=== PATIENT | male | born 1995 | race Caucasian/White ===

== ENCOUNTER 2017-08-06 14:26 | Emergency (ER) | payer OTHER ==
[~2017-08-06] VITALS: Ht 170.2 cm; Wt 67.7 kg
[2017-08-06] MEDS ORDERED: AZITHROMYCIN 500 MG TABLET PO ONE (18:00)
[2017-08-06] MEDS ORDERED: CEFTRIAXONE SODIUM 250 MG/VIAL IM ONE (18:00)
[2017-08-06] MEDS ORDERED: LIDOCAINE HCL 1% 20ML VIAL (Pyxis) INJ INFIL ONE (18:15)
[2017-08-06] MEDS ORDERED: LIDOCAINE HCL/PF 1% 10 MG/ML 5ML VIAL IJ SCH (18:30)
[2017-08-06 18:33] LABS: CLARITY URINE CLOUDY (CLEAR); COLOR URINE YELLOW (YELLOW); KETONES URINE 1+ (NEGATIVE); LEUKOCYTE ESTERASE URINE 3+ (NEGATIVE); NITRITE URINE NEGATIVE (NEGATIVE); OCCULT BLOOD URINE TRACE (NEGATIVE); PH URINE 5.5 (4.5-8.0); PROTEIN URINE NEGATIVE (NEGATIVE); SPECIFIC GRAVITY URINE 1.021 (1.005-1.030); UROBILINOGEN URINE 0.2 E.U./dL (0.2-1.0)
[2017-08-06 19:31] VITALS: BP 122/78
[2017-08-09 04:17] LABS: CHLAMYDIA TRACHOMATIS NAA Positive (Negative); NEISSERIA GONORRHOEAE NAA Positive (Negative)
== END 2017-08-06 19:32 | disposition home or self-care (01) ==
LOC: ER 15:32
DX: R36.9 Urethral discharge, unspecified (principal); N48.89 Other specified disorders of penis; F17.200 Nicotine dependence, unspecified, uncomplicated; F12.10 Cannabis abuse, uncomplicated; Z20.2 Contact with and (suspected) exposure to infections with a predominantly sexual mode of transmission
CPT/HCPCS: 76870; 81003; 86592; 87077; 87086; 87491; 87591; 93976; 96372; 99285; J0696; J3490